=== PATIENT | female | born 1980 | race Caucasian/White ===

== ENCOUNTER → 2016-11-25 | Outpatient (CLI) | payer BC, OTHER ==
[~2016-11-25] MED LIST: EXTR500C4 PO; GABA300C3 PO; GLYB125TA PO; HYDR10T PO; LORT5TAB PO; MOTR200T44 PO; PERCOCET PO; PRENTAB40 PO; RIBO100C PO; TIZA4CAP3 PO; VITA200015 PO; VITA500T3 PO; ceterizine PO
== END ==
LOC: M LAB 13:13
PROVIDERS: ATTEND Physician Assistant Medical
DX: E55.9 Vitamin D deficiency, unspecified (principal)

== ENCOUNTER → 2017-04-16 | Outpatient (CLI) | payer BC, OTHER ==
[~2017-04-16] MED LIST changes: +GABA-282 PO; -GABA300C3 PO; +HYDR-643 PO; -HYDR10T PO
[2017-04-16 16:07] LABS: ALBUMIN 4.3 GM/DL (3.2-5.2); ALBUMIN/GLOBULIN RATIO 1.48 (1.00-1.93); ALKALINE PHOSPHATASE 57 U/L (45-117); ALT/SGPT 38 U/L (12-78); ANION GAP 11 MEQ/L (8-16); AST/SGOT 16 U/L (15-37); BILIRUBIN,TOTAL 0.5 MG/DL (0.2-1.0); BLOOD UREA NITROGEN 16 MG/DL (7-18); CALCIUM LEVEL 9.5 MG/DL (8.5-10.1); CARBON DIOXIDE LEVEL 27 MEQ/L (21-32); CHLORIDE LEVEL 104 MEQ/L (98-107); CREATININE FOR GFR 0.89 MG/DL (0.55-1.02); GLOMERULAR FILTRATION RATE > 60.0 (>60); GLUCOSE, FASTING 91 MG/DL (70-105); POTASSIUM SERUM 4.2 MEQ/L (3.5-5.1); SODIUM LEVEL 142 MEQ/L (136-145); TOTAL PROTEIN 7.2 GM/DL (6.4-8.2)
== END ==
LOC: M WUC 12:39
PROVIDERS: ATTEND Nurse Practitioner Family
DX: R74.8 Abnormal levels of other serum enzymes (principal)

== ENCOUNTER → 2017-06-15 | Outpatient (CLI) | payer OTHER, BC ==
[2017-06-15 17:55] LABS: ALBUMIN 4.2 GM/DL (3.2-5.2); ALKALINE PHOSPHATASE 57 U/L (45-117); ALT/SGPT 70 U/L (12-78); ANION GAP 6 MEQ/L (8-16); AST/SGOT 32 U/L (15-37); BILIRUBIN,TOTAL 0.3 MG/DL (0.2-1.0); BLOOD UREA NITROGEN 13 MG/DL (7-18); CARBON DIOXIDE LEVEL 26 MEQ/L (21-32); CHLORIDE LEVEL 107 MEQ/L (98-107); GLOMERULAR FILTRATION RATE > 60.0 (>60); GLUCOSE, FASTING 77 MG/DL (70-105); POTASSIUM SERUM 4.2 MEQ/L (3.5-5.1); SODIUM LEVEL 139 MEQ/L (136-145)
[2017-06-15 18:03] LABS: BASO # 0.1 10^3/uL (0.0-0.2); BASO % 0.8 % (0.0-1.0); EOS # 0.1 10^3/uL (0.0-0.50); LYMPH # 1.8 10^3/uL (1.5-4.5); LYMPH % 29.9 % (24.0-44.0); MEAN CORPUSCULAR HEMOGLOBIN 29.3 pg (27.0-33.0); MEAN CORPUSCULAR HGB CONC 33.9 g/dl (32.0-36.5); MEAN CORPUSCULAR VOLUME 86.3 fl (80.0-96.0); MONO # 0.3 10^3/uL (0.0-0.8); MONO % 5.1 % (0.0-5.0); NEUTROPHILS # 3.8 10^3/uL (1.8-7.7); RED CELL DISTRIBUTION WIDTH 12.8 % (11.5-14.5); WHITE BLOOD COUNT 6.1 10^3/uL (4.0-10.0)
== END ==
LOC: M WUC 15:21
PROVIDERS: ATTEND Nurse Practitioner Family
DX: R74.8 Abnormal levels of other serum enzymes (principal); M19.90 Unspecified osteoarthritis, unspecified site; Z51.81 Encounter for therapeutic drug level monitoring; Z79.899 Other long term (current) drug therapy

== ENCOUNTER → 2017-08-18 | Outpatient (CLI) | payer BC, OTHER ==
[2017-08-18 17:44] LABS: ALBUMIN/GLOBULIN RATIO 1.29 (1.00-1.93); ALKALINE PHOSPHATASE 63 U/L (45-117); ALT/SGPT 72 U/L (12-78); ANION GAP 9 MEQ/L (8-16); AST/SGOT 27 U/L (7-37); BILIRUBIN,TOTAL 0.3 MG/DL (0.2-1.0); BLOOD UREA NITROGEN 17 MG/DL (7-18); CALCIUM LEVEL 8.6 MG/DL (8.5-10.1); CARBON DIOXIDE LEVEL 25 MEQ/L (21-32); CHLORIDE LEVEL 105 MEQ/L (98-107); CREATININE FOR GFR 0.72 MG/DL (0.55-1.02); GLOMERULAR FILTRATION RATE > 60.0 (>60); GLUCOSE, FASTING 74 MG/DL (70-105); POTASSIUM SERUM 4.1 MEQ/L (3.5-5.1); SODIUM LEVEL 139 MEQ/L (136-145); TOTAL PROTEIN 7.1 GM/DL (6.4-8.2)
--- NOTE | 2017-08-18 17:54 | ECGEPIP ---
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
[2017-08-18 19:35] LABS: BASO # 0.1 10^3/uL (0.0-0.2); BASO % 1.1 % (0.0-1.0); EOS # 0.1 10^3/uL (0.0-0.50); EOS % 2.1 % (0.0-3.0); IMMATURE GRANULOCYTE % 0.2 % (0-0); LYMPH # 1.9 10^3/uL (1.5-4.5); LYMPH % 28.7 % (24.0-44.0); MEAN CORPUSCULAR HEMOGLOBIN 29.9 pg (27.0-33.0); MEAN CORPUSCULAR HGB CONC 34.3 g/dl (32.0-36.5); MEAN CORPUSCULAR VOLUME 87.4 fl (80.0-96.0); MONO # 0.5 10^3/uL (0.0-0.8); MONO % 7.1 % (0.0-5.0); NEUTROPHILS % 60.8 % (36.0-66.0); PLATELET COUNT, AUTOMATED 270 10^3/uL (150-450); WHITE BLOOD COUNT 6.6 10^3/uL (4.0-10.0)
[2017-08-20 07:15] LABS: ERYTHROCYTE SEDIMENTATION RATE 2 mm/hr (0-20)
--- NOTE | 2017-08-21 06:35 | ECHO ---
DATE OF PROCEDURE: 08/18/2017 DATE OF : 1980 AGE: 36. 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 PATIENT LOCATION: Outpatient. 2-D MEASUREMENTS: IVS: 0.9 cm LV: 5.0 cm LVPW: 0.8 cm LA: 3.5 cm Aorta: 2.5 cm IVC: 1.7 cm DOPPLER MEASUREMENTS: Peak velocity across the aortic valve: 1.2 m/s Peak velocity across the LVOT: 1.2 m/s Mitral E: 1.1, Mitral A: 0.7 with a ratio of 1.5 Maximum tricuspid valve velocity: 2.1 m/s 2-D COMMENTS: 1. Normal left ventricular size, wall thickness, and normal global left ventricular systolic function. The estimated global left ventricular ejection fraction is 60-65%. 2. Normal left atrium. Normal right atrium and right ventricle. 3. The atrial septum appeared to be normal without evidence of defect or shunt. 4. Normal aortic root. 5. No pericardial effusion seen. 6. The aortic valve, mitral valve, tricuspid valve, and pulmonic valve appeared to be normal. The proximal pulmonary artery branches also appear to be normal. 7. The inferior vena cava was normal in size, central venous pressure is most likely normal. DOPPLER: It detects trace mitral regurgitation and trace tricuspid regurgitation. The calculated pulmonary artery systolic pressure was normal, less than 30 mmHg. Assessment of the left ventricular diastolic function also was normal. IMPRESSION: 1. Normal global left ventricular systolic and diastolic function. 2. Trace mitral regurgitation. 3. Trace tricuspid regurgitation with a normal calculated pulmonary artery systolic pressure.
== END ==
LOC: M LAB 15:46
PROVIDERS: ATTEND Nurse Practitioner Family
DX: R07.89 Other chest pain (principal)

== ENCOUNTER → 2018-04-26 | Outpatient (CLI) | payer BC, OTHER ==
[2018-04-26 10:44] LABS: TOTAL 25(OH) VITAMIN D 48.3 NG/ML (30.0-100.0)
== END ==
LOC: M LAB 08:02
DX: E55.9 Vitamin D deficiency, unspecified (principal)
CPT/HCPCS: 82306

== ENCOUNTER → 2019-01-13 | Outpatient (CLI) | payer BC, OTHER ==
[~2019-01-13] MED LIST changes: -GABA-282 PO; +GABA-843 PO; +TIZA4CAP PO; -TIZA4CAP3 PO
--- NOTE | 2019-01-13 18:00 | REP ---
Bilateral hand series: Eight views: History: Arthritis. Comparison study: April 24, 2015. Findings: Four views of the right hand and four views of the left hand are obtained. These show overall normal mineralization. No juxtaarticular osteopenia is noted. No bony erosive changes seen. Joint spaces are preserved. Impression: Negative bilateral hand radiographs. Electronically Signed by Nikunj Kan MD 01/14/2019 08:51 A
--- NOTE | 2019-01-13 18:02 | REP ---
SI joint series: Four views: History: Arthritis. Findings: Multiple views of the SI joints demonstrate mild sclerosis on the iliac side of the SI joints bilaterally consistent with osteitis condensans ilii. There is minimal sclerosis on the sacral side as well. No erosive changes seen. No evidence of ankylosis. 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 No erosive change or ankylosis seen. Electronically Signed by Nikunj Kan MD 01/14/2019 08:51 A
[2019-01-13 18:09] LABS: C REACTIVE PROTEIN QUANTITATIV < 0.30 MG/DL (0.00-0.30); RHEUMATOID FACTOR QUANT < 10.0 IU/ML (<15.0)
[2019-01-17 00:08] LABS: CYCLIC CITRULLINATED PEPTIDE 2 units (0-19)
== END ==
LOC: M WUC 14:15
PROVIDERS: ATTEND Internal Medicine Rheumatology
DX: M19.90 Unspecified osteoarthritis, unspecified site (principal)

== ENCOUNTER → 2020-06-06 | Outpatient (REF) | payer OTHER, BC ==
[~2020-06-06] MED LIST changes: +CYAN500T8 PO; -VITA500T3 PO
== END ==
LOC: M LAB REF 12:21
PROVIDERS: ATTEND Internal Medicine
DX: D51.8 Other vitamin B12 deficiency anemias (principal)

== ENCOUNTER → 2020-09-05 | Outpatient (REF) | payer OTHER ==
[~2020-09-05] MED LIST changes: +CYAN500T14 PO; -CYAN500T8 PO
== END ==
LOC: M LAB REF 12:17
PROVIDERS: ATTEND Physician Assistant
DX: Z20.828 Contact with and (suspected) exposure to other viral communicable diseases (principal)

== ENCOUNTER 2021-01-04 14:56 | Emergency (ER) | payer OTHER ==
[~2021-01-04] VITALS: Ht 167.6 cm; Wt 110.0 kg
[~2021-01-04 14:56] MED LIST changes: +GABA-282 PO; -GABA-843 PO
[2021-01-04] MEDS ORDERED: ALMO1TAB (15:10)
[2021-01-04] MEDS ORDERED: OMEP-221 (15:10)
[2021-01-04] MEDS ORDERED: DULO1CAP6 (15:10)
[2021-01-04] MEDS ORDERED: AIMO70IN2 (15:10)
[2021-01-04] MEDS ORDERED: TIZA4TAB4 (15:10)
--- NOTE | 2021-01-04 15:32 | REP ---
INDICATION: fall. COMPARISON: None. TECHNIQUE: Helical scanning is acquired. 5 mm axial images were reformatted. Coronal MPR images were generated. FINDINGS: Bone window settings demonstrate an intact bony calvarium. There is no evidence of skull fracture or incidental bony calvarial lesion. The visualized paranasal sinuses appear clear. No intraorbital abnormality is seen. On soft tissue window setting images; the lateral, third, and fourth ventricles are normal in size and position. Hansen-white differentiation pattern is normal above and below the tentorium. There are is no evidence of intracranial hemorrhage. No mass, edema, infarction, or midline shift is seen. No extra-axial fluid collection is appreciated. IMPRESSION: Negative noncontrast head CT. <Electronically signed by Aki Kan > 01/04/21 [id number]
--- NOTE | 2021-01-04 15:35 | REP ---
INDICATION: fall. COMPARISON: None. TECHNIQUE: Helical scanning is acquired and overlapping 2 mm high resolution axial images were generated and reviewed at bone and soft tissue window settings. Coronal and sagittal multiplanar re-formations images are generated. FINDINGS: There is straightening of the normal cervical lordosis. Degenerative disc disease is seen at the C5-6 with well established spurring and disc space narrowing. There is a left paracentral focal disc protrusion at C5-6 which appears to be compressing the ventral margin of the thecal sac. There is no evidence of fracture or subluxation. Disc spaces are otherwise preserved. Facet joints are normally aligned. No fracture or subluxation is seen.. No paravertebral or intraspinal hematoma is appreciated. IMPRESSION: No fracture seen. Left paracentral focal disc protrusion at C5-6. Degenerative disc disease at C5-6. No traumatic abnormality noted. <Electronically signed by Aki Kan > 01/04/21 [id number]
[2021-01-04] MEDS ORDERED: KETOROLAC 60MG 2ML VIAL IM ONE (17:05)
[2021-01-04] MEDS ORDERED: methocarbamoL 750 MG TAB PO ONE (17:05)
[2021-01-04] MEDS ORDERED: KETO10TAB PO (17:08)
[2021-01-04] MEDS ORDERED: METH-1165 PO (17:10)
[2021-01-04] MEDS ORDERED: KETOROLAC 30 MG/ML 1ML VIAL As Ordered ONE (17:14)
[2021-01-04 17:21] VITALS: BP 139/93
== END 2021-01-04 17:48 | disposition home or self-care (01) ==
LOC: M ED 14:56
DX: S06.0X0A Concussion without loss of consciousness, initial encounter (principal); S80.12XA Contusion of left lower leg, initial encounter; W17.89XA Other fall from one level to another, initial encounter; Y92.018 Other place in single-family (private) house as the place of occurrence of the external cause; M54.2 Cervicalgia; J45.909 Unspecified asthma, uncomplicated; K21.9 Gastro-esophageal reflux disease without esophagitis; Z79.899 Other long term (current) drug therapy; Z88.5 Allergy status to narcotic agent
CPT/HCPCS: 70450; 72125; 96372; 99283; J1885